=== PATIENT | female | born 1955 | race Caucasian/White ===

== ENCOUNTER → 2016-10-20 | Day surgery (SDC) | payer OTHER ==
--- NOTE | 2016-10-18 16:06 | History & Physical Pre-Op ---
General Information and HPI History of Present Illness: Kya is a 61-year-old female with a history of a painful soft tissue lesion to the plantar medial aspect of the left foot. Patient has undergone an extended course of conservative care, including shoe gear and activity modification, rest , immobilization and courses of NSAIDs. None of this is yielded her any significant relief. The patient presents today for preoperative surgical consultation. Allergies/Medications Allergies: Coded Allergies: NO KNOWN ALLERGIES (10/16/16) Home Med list Adalimumab (Humira) 40 MG/0.8 ML SYRINGEKIT 40 MG SC AD ARTHRITIS (Reported) Aspirin (Ecotrin*) 81 MG TABLET.DR 1 TAB PO DAILY HEART/BLOOD (Reported) Atenolol 50 MG TABLET 1 TAB PO DAILY BP (Reported) Cyanocobalamin (Vitamin B-12) (Unknown Strength) TABLET (Unknown Dose) PO DAILY SUPPLEMENT (Reported) Diazepam (Valium) 5 MG TABLET 1-2 TAB PO Q6P PRN muscle strain/spasm Docusate Sodium (Stool Softener) 100 MG TABLET 1 TAB PO EOD CONSTIPATION ( Reported) Eszopiclone 2 MG TABLET 1 TAB PO QPM SLEEP (Reported) Hydrochlorothiazide 12.5 MG CAPSULE 1 CAP PO DAILY BP (Reported) Hydrocodone/Acetaminophen (Hydrocodon-Acetaminophn 10-325) 1 EACH TABLET 1 TAB PO TID PAIN (Reported) Hydromorphone HCl (Dilaudid) 2 MG TABLET 1 TAB PO 4XDP PRN severe pain Morphine Sulfate (Morphine Sulfate ER) 60 MG TABLET.ER 1 TAB PO TID PAIN ( Reported) Prednisone 20 MG TABLET 1 TAB PO BID rheumatoid arthritis Simvastatin (Simvastatin*) 20 MG TABLET 1 TAB PO QPM CHOLESTEROL (Reported) Past History Medical History Neurological: NONE EENT: NONE Cardiovascular: hypertension, hyperlipidemia Respiratory: NONE Gastrointestinal: NONE Hepatic: NONE Renal: NONE Musculoskeletal: rheumatoid arthritis Psychiatric: NONE Endocrine: NONE Blood Disorders: NONE Cancer(s): NONE 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 Heart sounds rate and rhythm regular. Lower extremity physical exam demonstrates intact pedal pulses bilaterally. Pulses dorsalis pedis and posterior tibial arteries are palpable bilaterally. Patient without any sensory motor deficits. Patient noted to have a 5 cm x 4 cm soft tissue lesion at the plantar medial aspect of the left midfoot. The lesion is freely mobile within the tissues and nonpulsatile. Assessment/Plan Assessment/Plan: Painful soft tissue mass left foot. A lengthy discussion reviewing both surgical and conservative options was held the patient at bedside and the patient elects to go forward with surgery despite the risks. As Ranked By This Provider Problem List: 1. Neoplasm of unspecified behavior of bone, soft tissue, and skin Attending MD Review Statement Attending Statement Attending MD Statement: examined this patient
[~2016-10-20] VITALS: Ht 172.7 cm; Wt 97.5 kg
[~2016-10-20] MED LIST: ASPIRIN EC81 M1 PO; ATENOLOL50 M1 PO; DILAUDID2 M1 PO; ESZOPICLONE2 M1 PO; FLOMAX(MONOGRA0.4 MG PO; FLOMAX0.4 M1 PO; HUMIRA40 MG/0.1 SC; HYDROCHLOROTH12.5 M3 PO; HYDROCODON-ACE1 EAC1 PO; MORPHINE SULFAT60 M4 PO; PREDNISONE20 M1 PO; SIMVASTATIN20 M2 PO; STOOL SOFTENER100 M2 PO; TORADOL10 MG PO; VALIUM5 M2 PO; VITAMIN B-121000 MC3 PO; ZOFRAN ODT4 M1 SL
--- NOTE | 2016-10-20 09:48 | Operative Report ---
Operative/Inv Procedure Report Surgery Date: 10/20/16 Name of Procedure: 1 excision of soft tissue mass left foot 2 closure of open surgical wound with local random advancement flap 3 intraoperative administration of ankle block anesthesia Pre-Operative Diagnosis: 1 painful and enlarging soft tissue mass left foot Post-Operative Diagnosis: The same Estimated Blood Loss: scant Surgeon/Escalator Service Mechanic: CANDIDO REYNOLDS DPM Anesthesia: moderate sedation, block Operative/Procedure Note Note: After obtaining informed consent the patient was brought to the operating room and placed on the operating table in supine position. The patient isn't securely fastened to the operating table utilizing safety belt. After administration of IV sedation, 10 mL of 0.5% Marcaine plain was infiltrated about the patient's left ankle. Left foot and ankle then scrubbed prepped and draped in usual aseptic manner. 2 g of Ancef were delivered intravenously times one dose. A well-padded ankle tourniquet was placed about the patient's left lower extremity. Left foot was scrubbed prepped and draped in usual aseptic manner. Left lower extremity was elevated to examine to limb, which point the ankle tourniquet was inflated 250 mmHg. Attention directed medial aspect of the left foot where a nodular lesion was identified at the medial midfoot. A 7 cm curvilinear incision overlying the lesion was incised with a 15 blade and deepened subtenons tissues. A plane was developed between the adjacent soft tissue mass and the underlying normal tissue. The lesion was dissected free distally at its deep and and this extended proximally was then released and passed from the operative field was sent a specimen for pathologic inspection. Nipple was inspected for any remaining evidence of lesion was identified. Any bleeding vessels identified were cauterized or ligated as encountered. A plantar flap was then developed with release of the morning ligaments, undermining and mobilization adjacent tissues. The inferior margin of the flap was rotated superiorly and held at its deep side with 3-0 Vicryl. The skin edges were then reapproximated with 3-0 nylon. Incision dressed with Xeroform 4 x 4's Kerlix and an Paras wrap. The patient was noted to tolerate both procedure and anesthesia well and the patient was transported from the operating room to recovery by sent stable and vascular status intact to the plantar flap.
== END ==
LOC: STS 03:50
DX: D21.22 Benign neoplasm of connective and other soft tissue of left lower limb, including hip (principal); M79.672 Pain in left foot; I10 Essential (primary) hypertension; E78.5 Hyperlipidemia, unspecified; M06.9 Rheumatoid arthritis, unspecified; F17.200 Nicotine dependence, unspecified, uncomplicated
CPT/HCPCS: 88304; J0690; J2001; J2250

== ENCOUNTER 2016-10-30 15:04 | Emergency (ER) | payer OTHER ==
[~2016-10-30] VITALS: Ht 174 cm; Wt 97.5 kg
[~2016-10-30 15:04] MED LIST changes: -FLOMAX0.4 M1 PO; -ZOFRAN ODT4 M1 SL
--- NOTE | 2016-10-30 17:27 | ED GI/GU/ABDOMINAL COMPLAINT ---
History of Present Illness General Chief Complaint: General Adult Stated Complaint: PT IS HAVING STOMACH PAINS Source: patient Exam Limitations: no limitations Vital Signs & Intake/Output Vital Signs & Intake/Output Vital Signs Date Time Temp Pulse Resp B/P Pulse O2 O2 Flow FiO2 Ox Delivery Rate 10/307 98.2 80 16 150/80 10/30 1754 Room Air Room Air 10/30 1517 98.1 85 24 117/79 95 Room Air ED Intake and Output 10/31 0000 10/30 1200 Intake Total 0 Output Total Balance 0 Intake, Oral 0 Patient 215 lb Weight Allergies Coded Allergies: NO KNOWN ALLERGIES (10/30/16) Triage Note: TRIAGE: PT TO ER C/C PAIN TO LOW ABD AND INTO L HIP/BACK AREA. ONSET THIS MORNING. CONSTANT SINCE ONSET. TOOK HER REGULARLY SCHEDULED MORPHINE AND PERCOCET (PT IS IN PAIN MANAGEMENT) WITH NO RELIEF NOTED. +N/-V/-D. LNBM THIS MORNING. -URINARY S/S. Triage Nurses Notes Reviewed? yes ? N Is pt currently ? No HPI: This patient is a 61 year old female with a past medical history including nephrolithiasis who presented for one day of lower abdominal pain and left flank pain. She reported that the pain started this morning, has been coming and going , and gets up to a 10 out of 10. She saw her SOFTWARE SECURITY CONSULTANT who did a urinalysis which she said, "showed no blood in my urine." She reported that the pain has been worsening. She has associated nausea with no vomiting. No diarrhea. She denied any chest pain, shortness of breath, or fevers/chills. No urinary burning, urgency, frequency, or blood in the urine. (VIVIENNE HARDIN,BENJAMIN) General Source: patient Exam Limitations: no limitations Reconcile Medications Adalimumab (Humira) 40 MG/0.8 ML SYRINGEKIT 40 MG SC AD ARTHRITIS (Reported) Aspirin (Ecotrin*) 81 MG TABLET.DR 1 TAB PO DAILY HEART/BLOOD (Reported) Atenolol 50 MG TABLET 1 TAB PO DAILY BP (Reported) Cyanocobalamin (Vitamin B-12) (Unknown Strength) TABLET (Unknown Dose) PO DAILY SUPPLEMENT (Reported) Diazepam (Valium) 5 MG TABLET 1-2 TAB PO Q6P PRN muscle strain/spasm Docusate Sodium (Stool Softener) 100 MG TABLET 1 TAB PO EOD CONSTIPATION ( Reported) Eszopiclone 2 MG TABLET 1 TAB PO QPM SLEEP (Reported) Hydrochlorothiazide 12.5 MG CAPSULE 1 CAP PO DAILY BP (Reported) Hydrocodone/Acetaminophen (Hydrocodon-Acetaminophn 10-325) 1 EACH TABLET 1 TAB PO TID PAIN (Reported) Hydromorphone HCl (Dilaudid) 2 MG TABLET 1 TAB PO 4XDP PRN severe pain Morphine Sulfate (Morphine Sulfate ER) 60 MG TABLET.ER 1 TAB PO TID PAIN ( Reported) Ondansetron (Zofran Odt) 4 MG TAB.RAPDIS 1 TAB SL TID PRN nausea Prednisone 20 MG TABLET 1 TAB PO BID rheumatoid arthritis Simvastatin (Simvastatin*) 20 MG TABLET 1 TAB PO QPM CHOLESTEROL (Reported) Tamsulosin HCl (Flomax) 0.4 MG CAP.ER.24H 1 CAP PO DAILY kidney stone (ROBBI PATIÑO) Past History Travel History Traveled to [place] past 21 day No Medical History Any Pertinent Medical History? 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 No (BENJAMIN PALAFOX PA-C) Review of Systems Review of Systems Constitutional: Reports: no symptoms. EENTM: Reports: no symptoms. Respiratory: Reports: no symptoms. Cardiovascular: Reports: no symptoms. GI: Reports: see HPI. Genitourinary: Reports: see HPI. Musculoskeletal: Reports: no symptoms. Skin: Reports: no symptoms. Neurological/Psychological: Reports: no symptoms. All Other Systems: Reviewed and Negative (BENJAMIN PALAFOX PA-C) Physical Exam Physical Exam Gastrointestinal: normal bowel sounds, soft, no organomegaly, nondistended. Tender to palpation in bilateral lower quadrants with no rebound or guarding. negative valerio's sign. no masses appreciated. Comments: Well-developed well-nourished person in mild distress HEENT: Normal EENT exam, moist mucous membranes Pupils equally round and reactive to light. Neck: Supple, no lymphadenopathy Back: Normal gait. Left sided CVA tenderness. No midline tenderness Cardiovascular: Regular rate and rhythm with no murmurs, rubs, or gallops Respiratory: No respiratory distress. Breath sounds clear to auscultation bilaterally no W/R/R Extremities: Normal and equal pulses Neuro: Alert oriented x3, cranial nerves II through XII grossly intact. Skin: No appreciable rash on exposed skin, skin is warm and dry. Psych: Mood and affect is normal Core Measures ACS in differential dx? Yes Severe Sepsis Present: No Septic Shock Present: No (VIVIENNE HARDIN,BENJAMIN) Progress Differential Diagnosis: AMI, appendicitis, biliary colic, bowel obstruction, colon cancer, cholecystitis, diverticulitis, gastritis, hepatitis, ischemic bowel, inflamm bowel dis, kidney stone, ovarian cyst, ovarian torsion, pancreatitis, PID/cervicitis, PUD/GERD, perforated viscous, UTI/pyelo Initial ED EKG: none (BENJAMIN PALAFOX PA-C) Plan of Care: Orders Procedure Date/time Status CT ABD & PELVIS W/O IV CONTRAS 10/30 1847 Active CULTURE,URINE 10/30 1737 Active LIPASE 10/30 1737 Complete DIRECT BILIRUBIN 10/30 1737 Complete COMPREHENSIVE METABOLIC PANEL 10/30 1737 Complete CBC WITHOUT DIFFERENTIAL 10/30 1737 Complete AMYLASE 10/30 173 Complete URINALYSIS 10/30 1522 Complete Laboratory Tests 10/30/16 1801: Anion Gap 10, Estimated GFR > 60, BUN/Creatinine Ratio 25.0, Glucose 100 H, Calcium 10.0, Total Bilirubin 1.0, Direct Bilirubin 0.5 H, AST 29, ALT 36, Alkaline Phosphatase 47, Total Protein 7.5, Albumin 4.5, Globulin 3.0, Albumin/ Globulin Ratio 1.5, Amylase 48, Lipase 48, CBC w Diff NO MAN DIFF REQ, RBC 5.10, MCV 92.4, MCH 30.9, RDW 14.5, MPV 9.4, Gran % 88.3 H, Lymphocytes % 6.2 L, Monocytes % 5.2, Eosinophils % 0.2, Basophils % 0.1, Absolute Granulocytes 15.9 H, Absolute Lymphocytes 1.1 L, Absolute Monocytes 0.9 H, Absolute Eosinophils 0, Absolute Basophils 0, PUBS MCHC 33.4 10/30/16 1758: Urine Color YEL, Urine Clarity CLEAR, Urine pH 6.0, Ur Specific [place] >= 1.030 , Urine Protein TRACE H, Urine Ketones NEG, Urine Nitrite NEG, Urine Bilirubin NEG, Urine Urobilinogen 0.2, Ur Leukocyte Esterase NEG, Ur Microscopic SEDIMENT EXAMINED, Urine RBC 25-50 H, Urine WBC 1-3 H, Ur Epithelial Cells MANY H, Urine Mucus FEW, Urine Hemoglobin MOD H, Urine Glucose NEG Microbiology 10/308 URINE ROUT: Urine Culture - RECD 10/30/2016 8:06:50 PM: Signout received. Patient reevaluated. Patient reports that her pain had improved with the Toradol. Pain is now returning. Morphine ordered. Awaiting results of CT scan. 10/30/2016 8:44:56 PM: Pain well controlled after 4 mg of morphine. Discussed results of CT scan with patient, including the lung nodule findings. Patient appears comfortable. 2102: Discussed with Dr. Delcid: if patient is comfortable, then can discharge home with close follow up next week. (ROBBI PATIÑO) Diagnostic Imaging: Viewed by Me: CT Scan. Discussed w/RAD: CT Scan. Radiology Impression: PATIENT: DOUGLAS COOK PRESENT AGE: 61 PATIENT ACCOUNT NO: [id number] : 54 LOCATION: [facility] ORDERING PHYSICIAN: BENJAMIN PALAFOX PA-C SERVICE DATE: 10/30/16 EXAM TYPE: CAT - CT ABD & PELVIS W/O IV CONTRAS EXAMINATION: CT ABDOMEN AND PELVIS WITHOUT CONTRAST CLINICAL INFORMATION: Mid low abdominal pain. Left hip pain. COMPARISON: CT of the abdomen and pelvis without contrast on 07/20/2014. (Images not available, report only). CT of the abdomen and pelvis on 10/12/2010. (Images available). TECHNIQUE: Multidetector volumetric imaging was performed from the superior aspect of the liver through the pubic symphysis. Sagittal and coronal reformatted images were obtained on the technologist's workstation. (The patient refused IV contrast). DLP: 764 mGy-cm FINDINGS: Multifocal Button Inspector view is unremarkable. LUNG BASES: A lobulated soft tissue nodules located in the left lower lobe abutting the medial pleural reflection. This was described on a previous report. It measures 1.3 x 1.0 cm x 1.6. By measurements, it has not increased in size. However, since 2010, this nodule has increased in size. There is mild dependent atelectasis of both lower lobes. LIVER, GALLBLADDER, AND BILIARY TREE: The liver is normal in size and attenuation. A 1 cm hypodense nodule is located Couinaud segment 7. This was described in 2014. A nodular 8 mm hypodense nodule is located Couinaud segment 4 the liver. The gallbladder and bile ducts are normal. PANCREAS: Unremarkable. SPLEEN: Unremarkable. ADRENAL GLANDS: The small adenoma seen in the right adrenal gland is unchanged. There is some thickening of the left adrenal gland as previously seen. KIDNEYS AND URETERS: The right kidney is normal in size showing no sign of hydronephrosis or stone formation. The right ureter is not dilated. There is moderate hydronephrosis of the left kidney associated with an extrarenal pelvis and dilatation of the proximal left ureter to its midportion. At this location, there are 2 ureteral calculi one measuring 6 mm and the other 3 mm [id number]. No distal stones are appreciated. There is perinephric stranding on the left secondary to the acute obstruction. A 3.8 cm in diameter cyst is located in the cortex of the midpole of the left kidney. A nonobstructing 5 mm calculus is located in the lower pole of the left kidney. BLADDER: No stones. Nearly empty. GASTROINTESTINAL TRACT: The small hiatal hernia. Small intestine is normal. The appendix is normal. A few diverticula are seen in the sigmoid colon. Otherwise the colon is unremarkable. ABDOMINAL WALL: No significant hernia is appreciated. LYMPH NODES: Normal. VASCULAR: Calcific plaques are noted in the infrarenal abdominal aorta. PELVIC VISCERA: Uterus is normal in size and mildly retroflexed. The adnexa are normal. There is no free fluid. OSSEOUS STRUCTURES: Multilevel degenerative disc disease involves the entire lumbar spine, as well as T12-L1. There is facet arthropathy at the LS junction. IMPRESSION: 1. Moderate hydronephrosis of the left kidney and hydroureter to the point of obstruction in the mid ureter. 2 renal ureteral calculi are present at this location. 2. Nonobstructing calculus lower pole left kidney. 3. Lobulated left lower lobe noncalcified lung nodule that has slowly increased in size since 2010. 4. Benign right adrenal adenoma. DICTATED BY: AKIN FRITZ MD DATE/TIME DICTATED:10/30/162003 VOCATIONAL REHABILITATION ADMINISTRATOR: MURRAY DATE/TIME TRANSCRIBED:10/30/162003 CONFIDENTIAL, DO NOT COPY WITHOUT APPROPRIATE AUTHORIZATION. <Electronically signed in Other Vendor System> SIGNED BY: AKIN FRITZ MD 10/30/162033 (ROBBI PATIÑO) Departure Departure Condition: Stable Departure Forms: Customer Survey General Discharge Information (VIVIENNE HARDIN,BENJAMIN) Departure Disposition: HOME OR SELF CARE Clinical Impression Primary Impression: Renal colic on left side Secondary Impressions: Lung nodule Referrals: FREDO BROWN,COLETTE (PCP/Family) DAVID KEY MD Additional Instructions: Follow-up with Dr. Key on Wednesday for further evaluation, call Wednesday morning for appointment.. Take your pain medication as directed, contact your painter decorator on Wednesday to inform them of the kidney stones. You may need to discuss with them the possibility of medication for breakthrough pain. Drink plenty of fluids. Urinate through the strainer to try to collect the kidney stone. If you're able to collect stones then bring them to the urologist for further evaluation. Return to the emergency department if unable to stay hydrated, pain uncontrollable, fevers, or worsening of symptoms. Prescriptions: Current Visit Scripts Ondansetron (Zofran Odt) 1 TAB SL TID PRN nausea #10 TAB Tamsulosin HCl (Flomax) 1 CAP PO DAILY #10 CAP (ROBBI PATIÑO) PA/TALENT DIRECTOR Co-Sign Statement Statement: ED Attending supervision documentation- [] I saw and evaluated the patient. I have also reviewed all the pertinent lab results and diagnostic results. I agree with the findings and the plan of care as documented in the PA's/TALENT DIRECTOR's documentation. [X] I have reviewed the ED Record and agree with the PA's/TALENT DIRECTOR's documentation. [] Additions or exceptions (if any) to the PAs/TALENT DIRECTOR's note and plan are summarized below: [] (STUART BROWN,SEUN Banuelos)
[2016-10-30 18:34] LABS: ABSOLUTE BASOPHIL COUNT 0 /CUMM (0.0-0.2); ABSOLUTE EOSINOPHIL COUNT 0 /CUMM (0.0-0.7); ABSOLUTE GRANULOCYTE CT 15.9 /CUMM (1.4-6.5); ABSOLUTE LYMPH COUNT 1.1 /CUMM (1.2-3.4); ABSOLUTE MONOCYTE COUNT 0.9 /CUMM (0.10-0.60); BASOPHIL % 0.1 % (0.0-2.0); EOSINOPHIL % 0.2 % (0-5); GRANULOCYTE % 88.3 % (42.2-75.2); HEMATOCRIT 47.1 % (37-47); MEAN CORPUSCULAR HGB 30.9 PG (27.0-31.0); MEAN CORPUSCULAR HGB CONC 33.4 G/DL (33.0-37.0); MEAN CORPUSCULAR VOLUME 92.4 FL (81.0-99.0); MEAN PLATELET VOLUME 9.4 FL (7.4-10.4); PLATELET COUNT 233 /CUMM (130-400); RBC DISTRIBUTION WIDTH 14.5 % (11.5-14.5)
[2016-10-30 19:27] VITALS: BP 150/80
--- NOTE | 2016-10-30 20:34 | CT SCAN REPORT ---
EXAMINATION: CT ABDOMEN AND PELVIS WITHOUT CONTRAST CLINICAL INFORMATION: Mid low abdominal pain. Left hip pain. COMPARISON: CT of the abdomen and pelvis without contrast on 07/20/2014. (Images not available, report only). CT of the abdomen and pelvis on 10/12/2010. (Images available). TECHNIQUE: Multidetector volumetric imaging was performed from the superior aspect of the liver through the pubic symphysis. Sagittal and coronal reformatted images were obtained on the technologist's workstation. (The patient refused IV contrast). DLP: 764 mGy-cm FINDINGS: Building Analyst/Supervisor view is unremarkable. LUNG BASES: A lobulated soft tissue nodules located in the left lower lobe abutting the medial pleural reflection. This was described on a previous report. It measures 1.3 x 1.0 cm x 1.6. By measurements, it has not increased in size. However, since 2010, this nodule has increased in size. There is mild dependent atelectasis of both lower lobes. LIVER, GALLBLADDER, AND BILIARY TREE: The liver is normal in size and attenuation. A 1 cm hypodense nodule is located Couinaud segment 7. This was described in 2014. A nodular 8 mm hypodense nodule is located Couinaud segment 4 the liver. The gallbladder and bile ducts are normal. PANCREAS: Unremarkable. SPLEEN: Unremarkable. ADRENAL GLANDS: The small adenoma seen in the right adrenal gland is unchanged. There is some thickening of the left adrenal gland as previously seen. KIDNEYS AND URETERS: The right kidney is normal in size showing no sign of hydronephrosis or stone formation. The right ureter is not dilated. There is moderate hydronephrosis of the left kidney associated with an extrarenal pelvis and dilatation of the proximal left ureter to its midportion. At this location, there are 2 ureteral calculi one measuring 6 mm and the other 3 mm [id number]. No distal stones are appreciated. There is perinephric stranding on the left secondary to the acute obstruction. A 3.8 cm in diameter cyst is located in the cortex of the midpole of the left kidney. A nonobstructing 5 mm calculus is located in the lower pole of the left kidney. BLADDER: No stones. Nearly empty. GASTROINTESTINAL TRACT: The small hiatal hernia. Small intestine is normal. The appendix is normal. A few diverticula are seen in the sigmoid colon. Otherwise the colon is unremarkable. ABDOMINAL WALL: No significant hernia is appreciated. LYMPH NODES: Normal. VASCULAR: Calcific plaques are noted in the infrarenal abdominal aorta. PELVIC VISCERA: Uterus is normal in size and mildly retroflexed. The adnexa are normal. There is no free fluid. OSSEOUS STRUCTURES: Multilevel degenerative disc disease involves the entire lumbar spine, as well as T12-L1. There is facet arthropathy at the LS junction. IMPRESSION: 1. Moderate hydronephrosis of the left kidney and hydroureter to the point of obstruction in the mid ureter. 2 renal ureteral calculi are present at this location. 2. Nonobstructing calculus lower pole left kidney. 3. Lobulated left lower lobe noncalcified lung nodule that has slowly increased in size since 2011. 4. Benign right adrenal adenoma.
[2016-10-30] MEDS ORDERED: ZOFRAN ODT4 M1 SL (20:47)
[2016-10-30] MEDS ORDERED: FLOMAX0.4 M1 PO (20:47)
== END 2016-10-30 20:58 ==
LOC: ERH 15:04
PROVIDERS: Physician Assistant
DX: N23 Unspecified renal colic (principal); R91.1 Solitary pulmonary nodule
CPT/HCPCS: 74176; 81001; 87086; 96365; 96375; J1885; J2405

== ENCOUNTER → 2017-10-01 | Day surgery (SDC) | payer OTHER ==
[~2017-10-01] VITALS: Ht 172.7 cm; Wt 96.6 kg
[~2017-10-01] MED LIST changes: +AMBIEN10 M1 PO; +CRANBERRY PLUS1 EAC1 PO; +CYCLOBENZAPRINE10 M1 PO; +FLOMAX0.4 M1 PO; +METOPROLOL SUCC50 M2 PO; +OXYCODONE HCL10 M2 PO; +PREDNISONE2.5 M1 PO; +PREDNISONE5 M1 PO; +ZOFRAN ODT4 M1 SL
--- NOTE | 2017-10-01 11:20 | Operative Report ---
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 She's placed in supine position on the operating room table. She underwent induction of general anesthesia placement of laryngeal mask airway. The patient received IV antibiotics. She was converted to lithotomy position in [facility]. The perineum was prepped and draped in usual fashion. An anal block was performed using 0.5% Marcaine with epinephrine. A total of 30 mL was injected. First I excised lesion #1 in the left lateral anal margin. The lesion was sharply excised with a scalpel and then the base was fulgurated with electrocautery. This was a full-thickness excision Next I excised the right lateral anal margin lesion which was the larger of the lesion. This was a full thickness excision performed sharply in the dermis and epidermis. Cautery was used to divide the subcutaneous adipose tissue. Once the specimen was removed it was marked with suture orientation. The tissue defect was closed with interrupted 20 and 3-0 Vicryl reachers placed in a mattress fashion. The procedure was concluded. Her knee was cleansed and dried and bacitracin ointment and a bulky dressing were applied. The patient was converted back to supine position X been operating room and taken recovery in good condition. She tolerated the procedure well. And Schmidts needles and sponges were accounted for at the end of this operation. Discharge Disposition: PACU CC: Fredy BROWN,Tunde
== END ==
LOC: STS 01:55
DX: C21.0 Malignant neoplasm of anus, unspecified (principal); D01.3 Carcinoma in situ of anus and anal canal; Z86.19 Personal history of other infectious and parasitic diseases; I10 Essential (primary) hypertension; K21.9 Gastro-esophageal reflux disease without esophagitis; M06.9 Rheumatoid arthritis, unspecified; F17.200 Nicotine dependence, unspecified, uncomplicated
CPT/HCPCS: J0690; J2250